=== PATIENT | male | born 1965 | race Caucasian/White ===

== ENCOUNTER 2021-08-22 12:14 | Outpatient (CLI) | payer BC ==
[2021-08-22 18:09] LABS: BASOPHILS # (AUTO) 0.1 10^3/uL (0.0-0.1); EOSINOPHILS # (AUTO) 0.2 10^3/uL (0.0-0.7); EOSINOPHILS % (AUTO) 2.2 %; HCT - HEMATOCRIT 52.1 % (42.0-52.0); HGB - HEMOGLOBIN 16.9 g/dL (14.0-18.0); LYMPHOCYTES # (AUTO) 2.6 10^3/uL (1.5-3.5); LYMPHOCYTES % (AUTO) 24.4 %; MEAN CORPUSCULAR HEMOGLOBIN 30.4 pg (27.0-31.0); MEAN CORPUSCULAR HGB CONC 32.4 g/dL (32.0-36.0); MEAN CORPUSCULAR VOLUME 93.7 fL (80.0-94.0); MEAN PLATELET VOLUME 10.2 fL (7.4-11.4); MONOCYTES # (AUTO) 1.2 10^3/uL (0.0-1.0); MONOCYTES % (AUTO) 10.7 %; NEUTROPHILS # (AUTO) 6.6 10^3/uL (1.5-6.6); NEUTROPHILS % (AUTO) 61.5 %; PLT - PLATELET COUNT 306 10^3/uL (130-450); RED BLOOD COUNT 5.56 10^6/uL (4.70-6.10); RED CELL DISTRIBUTION WIDTH 12.8 % (12.0-15.0); WHITE BLOOD COUNT 10.8 x10^3/uL (4.8-10.8)
[2021-08-22 18:14] LABS: ALBUMIN 3.8 g/dL (3.2-5.5); ALBUMIN/GLOBULIN RATIO 0.8 (1.0-2.2); ALKALINE PHOSPHATASE 98 IU/L (42-121); ALT ALANINE AMINOTRANSFERASE 32 IU/L (10-60); AST ASPARTATE AMINOTRANSFERASE 55 IU/L (10-42); BILIRUBIN,TOTAL 0.7 mg/dL (0.2-1.0); BUN - BLOOD UREA NITROGEN 10 mg/dL (6-20); CALCIUM 9.7 mg/dL (8.5-10.3); CARBON DIOXIDE - CO2 29 mmol/L (21-32); CHLORIDE 97 mmol/L (101-111); CHOL/HDL RATIO 4.2 (<5.0); CHOLESTEROL 185 mg/dL; CREATININE 0.8 mg/dL (0.6-1.2); GFR - MDRD 100 (>89); GLUCOSE 112 mg/dL (70-100); HDL CHOLESTEROL 44 mg/dL; LDL CHOLESTEROL,CALCULATED 126 mg/dL; LDL/HDL RATIO 2.9 (<3.6); SODIUM 137 mmol/L (135-145); TOTAL PROTEIN 8.7 g/dL (6.7-8.2); TRIGLYCERIDES 74 mg/dL; VLDL CHOLESTEROL 15 mg/dL
[2021-08-23 09:21] LABS: HEPATITIS C ANTIBODY NON-REACTIVE (NON-REACTIVE)
[2021-08-23 20:18] LABS: ESTIMATED AVERAGE GLUCOSE 123 mg/dL (70-100); HEMOGLOBIN A1c% 5.9 % (4.27-6.07)
== END 2021-08-22 12:15 | disposition home or self-care (01) ==
LOC: LAB.N 12:14
PROVIDERS: ATTEND Internal Medicine
DX: I10 Essential (primary) hypertension (principal); M77.40 Metatarsalgia, unspecified foot; M54.50 Low back pain, unspecified; Z11.59 Encounter for screening for other viral diseases; Z13.6 Encounter for screening for cardiovascular disorders; Z79.899 Other long term (current) drug therapy
CPT/HCPCS: 36415; 80053; 80061; 83036; 83721; 84443; 85025; 86803

== ENCOUNTER 2021-10-27 11:50 | Emergency (ER) | payer BC ==
[2021-10-27] MEDS ORDERED: SODIUM CHLORIDE 0.9% 1,000 ML IV STA ×2 (12:19→14:00)
--- NOTE | 2021-10-27 12:21 | ED Physician Documentation ---
PD HPI URI - Stated complaint Stated Complaint: FEVER/FATIGUE - Chief complaint Chief Complaint: Resp - History obtained from History obtained from: Patient, Family - Additional information Additional information: 56-year-old gentleman with history of hypertension and tobacco abuse presents with a 2-week illness marked with dry cough, fatigue, fevers, feeling just out of it. He was tested for COVID last week was which was negative. He got partially better for a few days but then relapsed a couple of days ago. He was never truly febrile. T-max was 102.3 yesterday. He denies weight changes. Mild runny nose. No sore throat. He has had right-sided abdominal pain for about a month. Bowel movements have been normal. Review of Systems Ten Systems: 10 systems reviewed and negative Constitutional: reports: Fever, Chills, Myalgias, Fatigue Nose: reports: Rhinorrhea / runny nose Throat: denies: Sore throat Respiratory: reports: Dyspnea, Cough GI: denies: Abdominal Pain PD PAST MEDICAL HISTORY - Present Medications Home Medications: Ambulatory Orders Medication Instructions Recorded Confirmed Amlodipine Besylate [Norvasc] 2.5 mg PO DAILY 10/27/21 10/27/21 Ciprofloxacin HCl [Cipro] 500 mg PO BID #20 tablet 10/27/21 Losartan Potassium [Cozaar] 100 mg PO DAILY 10/27/21 10/27/21 metroNIDAZOLE [Flagyl] 500 mg PO TID 10 Days #30 tablet 10/27/21 - Allergies Allergies/Adverse Reactions: Allergies Allergy/AdvReac Type Severity Reaction Status Date / Time No Known Drug Allergies Allergy Verified 10/27/21 12:10 PD ED PE NORMAL - Vitals Vital signs reviewed: Yes (Modest hypertension and a resting tachycardia) - General General: Alert and oriented X 3, No acute distress - HEENT HEENT: PERRL, EOMI, Pharynx benign - Neck Neck: Supple, no meningeal sign, No bony TTP - Cardiac Cardiac: No murmur, Other (Mild resting tachycardia, no murmur) - Respiratory Respiratory: No respiratory distress, Clear bilaterally - Abdomen Abdomen: Normal bowel sounds, Soft, Non tender - Back Back: No CVA TTP, No spinal TTP - Derm Derm: Normal color, Warm and dry, No rash - Extremities Extremities: No edema, No calf tenderness / cord - Neuro Neuro: Alert and oriented X 3, Normal speech Results - Vitals Vitals: Vital Signs - 24 hr 10/27/21 10/27/21 10/27/21 12:06 13:10 13:33 Temperature 36.7 C Heart Rate 117 H 85 89 Respiratory 18 16 14 Rate Blood Pressure 137/85 H 138/82 H 137/88 H O2 Saturation 97 98 98 10/27/21 10/27/21 10/27/21 14:01 15:00 15:13 Temperature Heart Rate 88 74 84 Respiratory 18 16 14 Rate Blood Pressure 140/94 H 158/102 H 158/102 H O2 Saturation 98 98 98 10/27/21 10/27/21 10/27/21 15:50 16:35 17:00 Temperature Heart Rate 84 93 94 Respiratory 14 14 12 Rate Blood Pressure 134/65 H 148/85 H 142/87 H O2 Saturation 97 98 97 Oxygen O2 Source Room air - Labs Labs: Laboratory Tests 10/27/21 10/27/21 10/27/21 12:50 13:00 13:16 WBC 19.9 H RBC 4.76 Hgb 14.7 Hct 44.5 MCV 93.5 MCH 30.9 MCHC 33.0 RDW 13.4 Plt Count 314 MPV 9.9 Neut # (Auto) Not Reportable Lymph # (Auto) Not Reportable [place] # (Auto) Not Reportable Eos # (Auto) Not Reportable Baso # (Auto) Not Reportable Absolute Nucleated RBC Not Reportable Total Counted 100 Band Neuts % (Manual) 14 H Abnorm Lymph % (Manual) 0 Nucleated RBC % Not Reportable Neutrophils # (Manual) 16.5 H Lymphocytes # (Manual) 0.8 L Monocytes # (Manual) 2.4 H Eosinophils # (Manual) 0.2 Basophils # (Manual) 0.0 Differential Comment MANUAL DIFFERENTIAL Manual Slide Review Indicated WBC Morphology NORMAL APPEARANCE Platelet Estimate NORMAL (130-450,000) Platelet Morphology NORMAL APPEARANCE RBC Morph Micro Appear NORMAL APPEARANCE Sodium Potassium Chloride Carbon Dioxide Anion Gap BUN Creatinine Estimated GFR (MDRD) Glucose Lactic Acid Calcium Total Bilirubin AST ALT Alkaline Phosphatase Total Protein Albumin Globulin Albumin/Globulin Ratio Urine Color YELLOW Urine Clarity CLEAR Urine pH 6.0 Ur Specific [place] 1.015 Urine Protein NEGATIVE Urine Glucose (UA) NEGATIVE Urine Ketones NEGATIVE Urine Occult Blood NEGATIVE Urine Nitrite NEGATIVE Urine Bilirubin NEGATIVE Urine Urobilinogen 2 H Ur Leukocyte Esterase NEGATIVE Urine RBC 0-5 Urine WBC 6-10 H Ur Squamous Epith Cells FEW Squamous Urine Bacteria Rare Urine Casts 6-10 Hyaline Casts Urine Culture Comments NOT INDICATED Nasal Adenovirus (PCR) NOT DETECTED Nasal B. parapertussis DNA (PCR) NOT DETECTED Nasal Coronavir 229E PCR NOT DETECTED Nasal Coronavir HKU1 PCR NOT DETECTED Nasal Coronavir NL63 PCR NOT DETECTED Nasal Coronavir OC43 PCR NOT DETECTED Nasal Enterovir/Rhinovir PCR NOT DETECTED Nasal Influenza B PCR NOT DETECTED Nasal Influenza A PCR NOT DETECTED Nasal Parainfluen 1 PCR NOT DETECTED Nasal Parainfluen 2 PCR NOT DETECTED Nasal Parainfluen 3 PCR NOT DETECTED Nasal Parainfluen 4 PCR NOT DETECTED Nasal RSV (PCR) NOT DETECTED Nasal B.pertussis DNA PCR NOT DETECTED Nasal C.pneumoniae (PCR) NOT DETECTED Randell Human Metapneumo PCR NOT DETECTED Nasal M.pneumoniae (PCR) NOT DETECTED Nasal SARS-CoV-2 (PCR) NOT DETECTED 10/27/21 10/27/21 10/27/21 13:16 13:16 16:35 WBC RBC Hgb Hct MCV MCH MCHC RDW Plt Count MPV Neut # (Auto) Lymph # (Auto) [place] # (Auto) Eos # (Auto) Baso # (Auto) Absolute Nucleated RBC Total Counted Band Neuts % (Manual) Abnorm Lymph % (Manual) Nucleated RBC % Neutrophils # (Manual) Lymphocytes # (Manual) Monocytes # (Manual) Eosinophils # (Manual) Basophils # (Manual) Differential Comment Manual Slide Review WBC Morphology Platelet Estimate Platelet Morphology RBC Morph Micro Appear Sodium 138 Potassium 4.4 Chloride 98 L Carbon Dioxide 28 Anion Gap 12.0 BUN 22 H Creatinine 1.3 H Estimated GFR (MDRD) 57 L Glucose 95 Lactic Acid 2.2 1.9 Calcium 14.1 H* Total Bilirubin 1.7 H AST 153 H ALT 66 H Alkaline Phosphatase 181 H Total Protein 7.9 Albumin 2.9 L Globulin 5.0 H Albumin/Globulin Ratio 0.6 L Urine Color Urine Clarity Urine pH Ur Specific [place] Urine Protein Urine Glucose (UA) Urine Ketones Urine Occult Blood Urine Nitrite Urine Bilirubin Urine Urobilinogen Ur Leukocyte Esterase Urine RBC Urine WBC Ur Squamous Epith Cells Urine Bacteria Urine Casts Urine Culture Comments Nasal Adenovirus (PCR) Nasal B. parapertussis DNA (PCR) Nasal Coronavir 229E PCR Nasal Coronavir HKU1 PCR Nasal Coronavir NL63 PCR Nasal Coronavir OC43 PCR Nasal Enterovir/Rhinovir PCR Nasal Influenza B PCR Nasal Influenza A PCR Nasal Parainfluen 1 PCR Nasal Parainfluen 2 PCR Nasal Parainfluen 3 PCR Nasal Parainfluen 4 PCR Nasal RSV (PCR) Nasal B.pertussis DNA PCR Nasal C.pneumoniae (PCR) Randell Human Metapneumo PCR Nasal M.pneumoniae (PCR) Nasal SARS-CoV-2 (PCR) PD MEDICAL DECISION MAKING - ED course ED course: 56-year-old gentleman presents with a month and a half of abdominal pain and now 2 weeks of fever of unknown origin. He does have some dry cough and respiratory symptoms but tested negative for COVID as an outpatient. He is nontender on exam. Work-up here demonstrates significant leukocytosis with left shift, elevated liver enzymes. Initial CT done without contrast as there is an ongoing contrast shortage. It was read as contracted gallbladder with trace cholecystic fluid and pelvic ascites. On my view of the CT I wondered if there was a liver mass and this was discussed with the radiologist and she agreed that there may be. This was followed by both ultrasonography as well as CT with contrast. This demonstrated hepatomegaly with multiple masses. Still some concern on the imaging for cholecystitis but again clinically this is not the case, but he does have likely metastatic disease as well as some pulmonary nodules that could represent metastatic disease. I discussed with the patient and his that given the above findings he likely has widely metastatic disease of unknown primary and I will email his primary care physician, Dr. Gudino as he will need expedited follow-up and IR guided liver biopsy. Patient very much wanted to go home. He was given the better part of 2 L of crystalloid here for the hypercalcemia. Given the fever of unknown origin I am starting antibiotics, Cipro and Flagyl. Departure - Departure Disposition: Home, Self Care Clinical Impression: FUO (fever of unknown origin), Metastatic cancer to liver, Hypercalcemia, Pulmonary nodules Condition: Good Record reviewed to determine appropriate education?: Yes Instructions: ED Tumor [facility] Prescriptions: Ciprofloxacin HCl [Cipro] 500 mg PO BID #20 tablet metroNIDAZOLE [Flagyl] 500 mg PO TID 10 Days #30 tablet Comments: I sent your prescriptions electronically to [facility] in [place]. As discussed, your work-up today demonstrates that you likely have metastatic disease to the liver, there are also some small nodules in your lungs that may represent metastatic disease but are much less impressive than the disease in the liver. I am emailing Dr. Gudino as the next thing you will need is a CT-guided biopsy of your liver. It would be very helpful to get a piece of 1 of these masses to rule in cancer and get further details of the tumors source. You do have blood cultures pending and if they are positive we will call you and encourage you to return for reevaluation. Drink plenty of fluid.
--- NOTE | 2021-10-27 12:44 | XRAY Report ---
PROCEDURE: Chest 1 View X-Ray INDICATIONS: cough fever TECHNIQUE: One view of the chest was acquired. COMPARISON: None. FINDINGS: Surgical changes and devices: None. Lungs and pleura: No pleural effusions or pneumothorax. Lungs are clear. Mediastinum: Mediastinal contours appear normal. Heart size is normal. Bones and chest wall: No suspicious bony lesions. Overlying soft tissues appear unremarkable. IMPRESSION: No acute cardiopulmonary pathology. Reviewed by: Saurabh Smith MD on 10/27/2021 12:42 PM PDT Approved by: Saurabh Smith MD on 10/27/2021 12:42 PM PDT Station ID: [id number]
[2021-10-27 12:58] LABS: BILIRUBIN,URINE NEGATIVE (NEGATIVE); GLUCOSE, URINE (UA) NEGATIVE (NEGATIVE); KETONES,URINE (UA) NEGATIVE (NEGATIVE); LEUKOCYTE ESTERASE, URINE NEGATIVE (NEGATIVE); NITRITE,URINE NEGATIVE (NEGATIVE); OCCULT BLOOD,URINE NEGATIVE (NEGATIVE); PROTEIN,URINE NEGATIVE (NEGATIVE); UROBILINOGEN,URINE 2 E.U./dL (NORMAL)
--- NOTE | 2021-10-27 12:59 | CT Report ---
PROCEDURE: Abdomen/Pelvis WO INDICATIONS: FUO, R abd pain TECHNIQUE: Noncontrast 5 mm thick sections acquired from the diaphragms to the symphysis. 5 mm coronal and sagi ttal reformats were then performed. For radiation dose reduction, the following was used: automated exposure control, adjustment of mA and/or kV according to patient size. COMPARISON: None. FINDINGS: Image quality: Excellent. ABDOMEN: Lung bases: There is mild bilateral basilar atelectasis in the dependent lungs. No pleural effusion. Heart size is normal. Solid organs: Liver and spleen are normal in size. There is trace low-density perihepatic free fluid noted. The gallbladder is moderately contracted. There is trace pericholecystic fluid. Pancreas is n ormal in contours. No adrenal nodules. Kidneys are normal in size, without hydronephrosis or nephro lithiasis. Peritoneum and bowel: Unenhanced bowel loops demonstrate normal wall thickness and caliber. The appe ndix is not visualized; however there are no focal findings at the level of the cecum such as fat str anding or free fluid to suggest acute appendicitis. There is a small amount of low-density free pelvi c fluid. Nodes and vessels: No retroperitoneal or mesenteric adenopathy by size criteria. Aorta and inferior vena cava are normal in caliber. Miscellaneous: No ventral hernias. PELVIS: Genitourinary: Bladder wall thickness is normal. Miscellaneous: No inguinal hernias or adenopathy. Bones: No suspicious bony lesions. No vertebral body compression fractures. IMPRESSION: 1. Contracted gallbladder with trace pericholecystic fluid and trace perihepatic fluid. Differential considerations include acute cholecystitis or hepatitis. Right upper quadrant ultrasound recommended to further characterize the gallbladder, preferably with the patient and an nothing by mouth status. 2. Small amount of pelvic ascites which is abnormal in a male patient. 3. The appendix is not visualized; however there are no discrete ancillary findings to suggest acute appendicitis. Reviewed by: An Turner MD on 10/27/2021 12:58 PM PDT Approved by: An Turner MD on 10/27/2021 12:58 PM PDT Station ID: [id number]
[2021-10-27 13:07] LABS: BACTERIA,URINE Rare /HPF (None Seen); CLARITY,URINE CLEAR (CLEAR); RBC,URINE 0-5 /HPF (0-5)
[2021-10-27 13:08] LABS: SQUAMOUS EPITHELIAL CELL,UR FEW Squamous (<= Few)
[2021-10-27 13:20] LABS: BASOPHILS % (AUTO) 0.7 %; EOSINOPHILS % (AUTO) 0.8 %; HCT - HEMATOCRIT 44.5 % (42.0-52.0); HGB - HEMOGLOBIN 14.7 g/dL (14.0-18.0); LYMPHOCYTES % (AUTO) 6.7 %; MEAN CORPUSCULAR HEMOGLOBIN 30.9 pg (27.0-31.0); MEAN CORPUSCULAR VOLUME 93.5 fL (80.0-94.0); MEAN PLATELET VOLUME 9.9 fL (7.4-11.4); MONOCYTES % (AUTO) 10.1 %; NEUTROPHILS % (AUTO) 81.2 %; PLT - PLATELET COUNT 314 10^3/uL (130-450); RED BLOOD COUNT 4.76 10^6/uL (4.70-6.10); RED CELL DISTRIBUTION WIDTH 13.4 % (12.0-15.0); WHITE BLOOD COUNT 19.9 x10^3/uL (4.8-10.8)
[2021-10-27 13:21] LABS: SLIDE REVIEW? Indicated
[2021-10-27 13:23] LABS: ABNORMAL LYMPHS % (MANUAL) 0 %
[2021-10-27 13:34] LABS: LACTIC ACID, VENOUS 2.2 mmol/L (0.5-2.2)
[2021-10-27 13:43] LABS: BAND NEUTROPHILS % (MANUAL) 14 %; DIFFERENTIAL COMMENT MANUAL DIFFERENTIAL; EOSINOPHILS # (MANUAL) 0.2 10^3/uL (0-0.7); LYMPHOCYTES # (MANUAL) 0.8 10^3/uL (1.5-3.5); LYMPHOCYTES % (MANUAL) 4 %; MONOCYTES # (MANUAL) 2.4 10^3/uL (0.0-1.0); NEUTROPHILS # (MANUAL) 16.5 10^3/uL (1.5-6.6)
[2021-10-27 13:46] LABS: ALBUMIN 2.9 g/dL (3.2-5.5); ALBUMIN/GLOBULIN RATIO 0.6 (1.0-2.2); BILIRUBIN,TOTAL 1.7 mg/dL (0.2-1.0); CALCIUM 14.1 mg/dL (8.5-10.3); CREATININE 1.3 mg/dL (0.6-1.2); PLATELET ESTIMATE, MANUAL NORMAL (130-450,000) (NORMAL); PLATELET MORPHOLOGY NORMAL APPEARANCE (NORMAL); POTASSIUM 4.4 mmol/L (3.5-5.0); RBC MORPHOLOGY (MULTIPLE) NORMAL APPEARANCE (NORMAL); TOTAL PROTEIN 7.9 g/dL (6.7-8.2); WBC MORPHOLOGY (MULTIPLE) NORMAL APPEARANCE (NORMAL)
[2021-10-27 14:20] LABS: B. PARAPERTUSSIS- RESP PCR PAN NOT DETECTED; B. PERTUSSIS- RESP PCR PANEL NOT DETECTED; C. PNEUMONIAE- RESP PCR PANEL NOT DETECTED; CORONAVIRUS 229E-RESP PCR NOT DETECTED; CORONAVIRUS HKU1-RESP PCR NOT DETECTED; CORONAVIRUS NL63-RESP PCR NOT DETECTED; CORONAVIRUS OC43-RESP PCR NOT DETECTED; HUMAN METAPNEUMOVIRUS NOT DETECTED; INFLUENZA A- RESP PCR PANEL NOT DETECTED; INFLUENZA B - RESP PCR PANEL NOT DETECTED; M. PNEUMONIAE- RESP PCR PANEL NOT DETECTED; PARAINFLUENZA VIRUS 1 NOT DETECTED; PARAINFLUENZA VIRUS 2 NOT DETECTED; PARAINFLUENZA VIRUS 3 NOT DETECTED; PARAINFLUENZA VIRUS 4 NOT DETECTED; RHINOVIRUS/ENTEROVIRUS NOT DETECTED; RSV- RESP PCR PANEL NOT DETECTED; SARS-CoV-2 -RESP PCR PANEL NOT DETECTED
[2021-10-27] MEDS ORDERED: IOPAMIDOL-300 50 ML VIAL ONE (15:57)
--- NOTE | 2021-10-27 16:08 | Ultrasound Report ---
PROCEDURE: Abdomen Limited INDICATIONS: R abd pain, abn CT TECHNIQUE: Real-time focused scanning was performed of the abdomen, with image documentation. COMPARISON: CT abdomen and pelvis 10/27/2021 FINDINGS: Liver is enlarged measuring 26.2 cm. Liver has marked heterogeneous appearance concerning for underly ing hepatic masses. No intrahepatic biliary tree dilatation. No gallstones. Gallbladder wall is thickened to 4.8 mm. Small amount of pericholecystic fluid is note d. No sonographic Olguin sign reported. Biliary tree is nondilated. Common bile duct measures 4.7 mm. Head and body of pancreas are sonographically normal. Tail of pancreas is obscured and cannot be eval uated. Right kidney measures 14.8 cm in long axis. There is a 7 mm in diameter right renal cyst. IMPRESSION: 1. Gallbladder wall thickening with small amount of pericholecystic fluid. Finding could represent ch olecystitis or could be related to chronic hepatocellular disease. 2. Hepatomegaly with marked hepatic heterogeneity concerning for underlying hepatic masses. Recommend correlation with clinical history and CT scan of the abdomen and pelvis with contrast when clinicall y feasible. 3. Small amount of ascites. Reviewed by: Ashli Daniels MD, PhD on 10/27/2021 4:07 PM PDT Approved by: Ashli Daniels MD, PhD on 10/27/2021 4:07 PM PDT Station ID: [id number]
[2021-10-27] MEDS ORDERED: IOPAMIDOL-300 50 ML VIAL IVP ONE (16:30)
--- NOTE | 2021-10-27 16:52 | CT Report ---
PROCEDURE: CHEST W INDICATIONS: FUO with liver mets, smoker CONTRAST: IV CONTRAST: Isovue 300 ml: 100 PO CONTRAST: *NO PO CONTRAST TECHNIQUE: After the administration of intravenous contrast, 1 mm axial images were acquired from the pulmonary apices through the posterior costophrenic angles. Axial 5 mm soft tissue kernel reconstructions were performed as well as 8 mm axial MIP and coronal and sagittal 5 mm reformations. For radiation dose reduction, the following was used: automated exposure control, adjustment of mA and/or kV according to patient size. COMPARISON: Chest x-ray 10/27/2021 FINDINGS: Image quality: Excellent. Lungs and pleura: No acute air space opacities. No pleural effusions or pneumothorax. Central and peripheral airways are patent and normal in caliber. Subcentimeter bilateral pulmonary nodules:. Right upper lobe, 7 nodules ranging from 3 to 5 mm, series 2 image 84, 70, 43, 38 Right lower lobe nodule 5 mm series 12 images 151 Mediastinum: Heart size is normal. No pericardial effusion. No mediastinal or hilar adenopathy by size criteria. Thoracic aorta and central pulmonary arteries are normal in size. Esophagus is susie l in caliber. No hiatal hernia. Bones and chest wall: No suspicious bony lesions. No vertebral body compression fractures. No axil natalia or supraclavicular adenopathy by size criteria. The thyroid is normal in size and there are no incidental findings.. Abdomen: Innumerable hypoattenuating hepatic lesions are present with the largest confluent mass joe ntified in the left lobe measuring 9.0 x 9.3 cm. They are incompletely visualized. Visualized upper a bdominal solid organs appear normal. Upper abdominal bowel loops are normal in caliber. IMPRESSION: Innumerable focal and confluent partially visualized hepatic masses most suspicious for malignancy li dunia metastatic disease. Right upper lobe nodules as above. While these are overall nonspecific and no priors are available fo r comparison, given hepatic findings, close interval follow-up is recommended, as metastatic disease cannot be excluded. CLINICAL RECOMMENDATION STATEMENTS: In patients <35 years with an ITN detected on CT, MRI, or extrathyroidal ultrasound, the Committee re commends further evaluation with dedicated thyroid ultrasound if the nodule is "e1 cm and has no susp icious imaging features, and if the patient has normal life expectancy. In patients "e35 years with an ITN detected on CT, MRI, or extrathyroidal ultrasound, the Committee r ecommends further evaluation with dedicated thyroid ultrasound if the nodule is "e1.5 cm and has no s uspicious imaging features, and if the patient has normal life expectancy. (ACR, 2014) Reviewed by: Ena Rodriguez MD on 10/27/2021 4:51 PM PDT Approved by: Ena Rodriguez MD on 10/27/2021 4:51 PM PDT Station ID: [id number]
--- NOTE | 2021-10-27 17:12 | CT Report ---
PROCEDURE: Abdomen/Pelvis W INDICATIONS: IV only liver masses, liver protocol CONTRAST: IV CONTRAST: Isovue 300 ml: 100 PO CONTRAST: *NO PO CONTRAST TECHNIQUE: After the administration of IV contrast, 5 mm thick sections acquired from the diaphragms to the symp hysis. 5 mm thick coronal and sagittal reformats were acquired. For radiation dose reduction, the f ollowing was used: automated exposure control, adjustment of mA and/or kV according to patient size. COMPARISON: None. FINDINGS: Image quality: Excellent. ABDOMEN: Lung bases: Lung bases are clear. Heart size is normal. Solid organs: Multiple hypodense hepatic lesions are visualized throughout the liver, most confluent within the left hepatic lobe. These demonstrate relative hypodensity to the surrounding hepatic paren chyma on all 3 phases. Gallbladder is contracted. There is trace pericholecystic free fluid. Biliary system is non dilated. Pancreas enhances normally. No adrenal nodules. Kidneys demonstrate normal size and enhancement, without hydronephrosis. Peritoneum and bowel: Bowel loops demonstrate normal wall thickness and caliber. No free fluid or a ir. Nodes and vessels: There are multiple enlarged portacaval lymph nodes. No periaortic or mesenteric ad enopathy. No iliac adenopathy. Trace low-density free fluid is present within the pelvis and tracking along the liver. Miscellaneous: No ventral hernias. PELVIS: Genitourinary: Bladder wall thickness is normal. Miscellaneous: No inguinal hernias or adenopathy. Bones: No suspicious bony lesions. No vertebral body compression fractures. IMPRESSION: 1. Innumerable hepatic hypodense lesions most consistent with diffuse hepatic metastatic disease. No definite pancreatic or bowel primary visualized. These lesions are likely amenable to CT-guided or ul trasound-guided percutaneous biopsy. 2. Contracted gallbladder with some pericholecystic fluid. There is some perihepatic fluid and free f luid in the pelvis. These findings are classical for acute cholecystitis. 3. No other acute intra-abdominal findings. These findings were discussed with Dr. Lucas at 5:07 PM on 10/27/2021. Reviewed by: An Turner MD on 10/27/2021 5:11 PM PDT Approved by: An Turner MD on 10/27/2021 5:11 PM PDT Station ID: [id number]
[2021-10-27] MEDS ORDERED: CIPROFLOXACIN 250 MG TABLET PO STA (17:15)
[2021-10-27] MEDS ORDERED: metroNIDAZOLE 250 MG TABLET PO STA (17:15)
[2021-10-27 17:33] VITALS: BP 104/70
[2021-10-28 05:12] LABS: HBsAG SCREEN Negative (Negative); HCV AB 0.2 s/co ratio (0.0-0.9); HEPATITIS B CORE IGM AB Negative (Negative)
== END 2021-10-27 17:30 | disposition home or self-care (01) ==
LOC: ED 11:50
DX: R50.9 Fever, unspecified (principal); C78.7 Secondary malignant neoplasm of liver and intrahepatic bile duct; R91.8 Other nonspecific abnormal finding of lung field; I10 Essential (primary) hypertension; Z72.0 Tobacco use
CPT/HCPCS: 36415; 71045; 71260; 74176; 74177; 76705; 80053; 81001; 83605; 85025; 86705; 86709; 86803; 87040; 87340; 87633; 96360; 96361; 99283; 99284; A9270; Q9967; 87086